=== PATIENT | female | born 1985 | race Two or more races ===

== ENCOUNTER 2016-05-27 21:17 | Emergency (ER) | payer MEDICAID, OTHER ==
[~2016-05-27] VITALS: Ht 152.4 cm; Wt 87.5 kg
[2016-05-27 22:34] LABS: Basophils # (auto) 0.1 uL; Basophils % (auto) 0.5 % (0.0-2.0); DEFINITIVE VIEW TRANSMISSION; Eosinophils # (auto) 0.2 uL; Eosinophils % (auto) 1.3 % (0.0-7.0); Hematocrit 41.6 % (36.0-46.0); Hemoglobin 13.7 g/dL (12.2-16.2); Lymphocytes # (auto) 5.5 uL; Lymphocytes % (auto) 37.3 % (10.0-50.0); Mean Corpuscular Hemoglobin 27.5 pg (28.0-32.0); Mean Corpuscular Volume 83.2 fL (80.0-100.0); Mean Platelet Volume 6.9 fL (7.4-10.4); Monocytes # (auto) 0.8 uL; Monocytes % (auto) 5.1 % (0.0-12.0); Neutrophils # (auto) 8.3 uL; Neutrophils % (auto) 55.8 % (37.0-80.0); Platelet Count (auto) 307 10^3/uL (140-450); Red Cell Distribution Width 12.6 % (11.6-16.0); White Blood Cell 14.9 10^3/uL (4.4-10.8)
[2016-05-27 22:38] LABS: Urine Bilirubin Negative (Negative); Urine Color Colorless (Yellow); Urine Glucose Normal (Normal); Urine Ketone Negative (Negative); Urine Nitrite Negative (Negative); Urine RBC <1 /hpf (0 - 4); Urine Squamous Epithelial Cell FEW /hpf (<5); Urine Urobilinogen Normal (Negative); Urine pH 5.5 (5.0-8.0)
[2016-05-27 22:39] LABS: Urine Blood 2+ /uL (Negative)
[2016-05-27 22:57] LABS: Albumin 3.8 g/dL (3.4-5.0); BUN/Creatinine Ratio 20.8; Calcium 8.7 mg/dL (8.5-10.1); Potassium 3.5 mmol/L (3.5-5.1)
[2016-05-27 23:00] LABS: Bilirubin, Total 0.2 mg/dL (0.2-1.0); Total Protein 7.7 g/dL (6.4-8.2)
[2016-05-28 01:04] VITALS: BP 107/69
[2016-05-28] MEDS ORDERED: SULFAMETHOX W/TRIMETH(800/160MG) DS TAB PO ONE (01:30)
== END 2016-05-28 02:07 | disposition home or self-care (01) ==
LOC: ER 21:28
DX: N39.0 Urinary tract infection, site not specified (principal); K64.9 Unspecified hemorrhoids; K59.00 Constipation, unspecified
CPT/HCPCS: 36415; 74000; 80053; 81001; 81025; 85025; 85049

== ENCOUNTER 2017-09-03 08:12 | Emergency (ER) | payer SELFPAY ==
[~2017-09-03] VITALS: Ht 152.4 cm; Wt 84.4 kg
[2017-09-03 09:06] LABS: Basophils # (auto) 0.1 uL; Basophils % (auto) 0.7 % (0.0-2.0); Eosinophils # (auto) 0.1 uL; Eosinophils % (auto) 1.3 % (0.0-7.0); Hematocrit 43.7 % (36.0-46.0); Hemoglobin 14.6 g/dL (12.2-16.2); Lymphocytes # (auto) 3.1 uL; Lymphocytes % (auto) 33.4 % (10.0-50.0); Mean Corpuscular Hemoglobin 27.9 pg (28.0-32.0); Mean Corpuscular Hgb Conc. 33.5 g/dL (32.0-36.0); Mean Corpuscular Volume 83.5 fL (80.0-100.0); Monocytes # (auto) 0.4 uL; Monocytes % (auto) 4.5 % (0.0-12.0); Neutrophils # (auto) 5.7 uL; Neutrophils % (auto) 60.1 % (37.0-80.0); Platelet Count (auto) 281 10^3/uL (140-450); Red Blood Cells 5.23 10^6/uL (4.0-5.20); Red Cell Distribution Width 13.1 % (11.8-14.3); White Blood Cell 9.4 10^3/uL (4.4-10.8)
[2017-09-03 09:11] LABS: Urine Bacteria NONE SEEN /hpf (None Seen); Urine Blood TRACE /uL (Negative); Urine Mucus FEW (None Seen); Urine Specific Gravity 1.024 (1.001-1.035); Urine WBC 1 /hpf (0 - 5)
[2017-09-03 09:29] LABS: Alanine Aminotransferase 31 U/L (13-56); Albumin 3.8 g/dL (3.4-5.0); Alkaline Phosphatase 100 U/L (45-117); Anion Gap 8 (5-15); Aspartate Aminotransferase 16 U/L (15-37); Bilirubin, Total 0.5 mg/dL (0.2-1.0); Blood Urea Nitrogen 13 mg/dL (7-18); Calcium 8.6 mg/dL (8.5-10.1); Carbon Dioxide 25 mmol/L (21-32); Chloride 107 mmol/L (98-107); GFR African American 105 mL/min; GFR Non-African American 87 mL/min; Glucose 95 mg/dL (74-106); Potassium 3.7 mmol/L (3.5-5.1); Sodium 140 mmol/L (136-145); Total Protein 7.9 g/dL (6.4-8.2)
[2017-09-03 10:47] VITALS: BP 118/74
== END 2017-09-03 13:07 | disposition home or self-care (01) ==
LOC: ER 08:12
DX: H66.92 Otitis media, unspecified, left ear (principal); Z98.51 Tubal ligation status
CPT/HCPCS: 36415; 70450; 80053; 81001; 84484; 84702; 85025

== ENCOUNTER 2018-01-31 09:15 | Emergency (ER) | payer MEDICAID ==
[~2018-01-31] VITALS: Ht 152.4 cm; Wt 87.1 kg
[2018-01-31 09:29] VITALS: BP 129/65
[2018-01-31 10:24] LABS: Basophils # (auto) 0.1 uL; Basophils % (auto) 0.6 % (0.0-2.0); Eosinophils # (auto) 0.1 uL; Eosinophils % (auto) 0.8 % (0.0-7.0); Hematocrit 42.8 % (36.0-46.0); Hemoglobin 14.2 g/dL (12.2-16.2); Lymphocytes # (auto) 3.2 uL; Lymphocytes % (auto) 19.8 % (10.0-50.0); Mean Corpuscular Hemoglobin 27.8 pg (28.0-32.0); Mean Corpuscular Hgb Conc. 33.2 g/dL (32.0-36.0); Mean Corpuscular Volume 83.7 fL (80.0-100.0); Monocytes # (auto) 0.7 uL; Monocytes % (auto) 4.1 % (0.0-12.0); Neutrophils # (auto) 12.2 uL; Neutrophils % (auto) 74.7 % (37.0-80.0); Platelet Count (auto) 283 10^3/uL (140-450); Red Blood Cells 5.12 10^6/uL (4.0-5.20); Red Cell Distribution Width 13.2 % (11.8-14.3); White Blood Cell 16.3 10^3/uL (4.4-10.8)
[2018-01-31 10:45] LABS: Albumin 3.8 g/dL (3.4-5.0); BUN/Creatinine Ratio 15.1; Bilirubin, Total 0.7 mg/dL (0.2-1.0); Calcium 8.9 mg/dL (8.5-10.1); Potassium 4.1 mmol/L (3.5-5.1)
[2018-01-31] MEDS: KETOROLAC TROMETH 60MG/2ML VIAL IM ONE (11:32)
[2018-01-31 13:59] LABS: Urine Bacteria FEW /hpf (None Seen); Urine Blood 3+ /uL (Negative); Urine Specific Gravity 1.007 (1.001-1.035); Urine WBC 53 /hpf (0 - 5)
== END 2018-01-31 12:13 | disposition home or self-care (01) ==
LOC: ER 09:15
DX: N39.0 Urinary tract infection, site not specified (principal); R31.9 Hematuria, unspecified; K76.0 Fatty (change of) liver, not elsewhere classified; J45.909 Unspecified asthma, uncomplicated
CPT/HCPCS: 36415; 74176; 80053; 81001; 81025; 85025; 96372; 99285; J1885

== ENCOUNTER 2023-02-24 10:34 | Emergency (ER) | payer MEDICAID ==
[~2023-02-24] VITALS: Ht 160 cm; Wt 92.7 kg
[2023-02-24 11:41] VITALS: BP 122/66; PULSE 73; RESP 20; TEMP 98; O2SAT 98
[2023-02-24 12:04] LABS: Basophils # (auto) 0.1 10 ^3/uL (0-0.2); Basophils % (auto) 0.5 % (0.0-2.0); Eosinophils # (auto) 0.2 10 ^3/uL (0-0.8); Eosinophils % (auto) 1.8 % (0.0-7.0); Hematocrit 40.9 % (36.0-46.0); Hemoglobin 13.9 g/dL (12.2-16.2); Lymphocytes # (auto) 3.9 10 ^3/uL (0.4-5.4); Lymphocytes % (auto) 36.6 % (10.0-50.0); Mean Corpuscular Hemoglobin 27.9 pg (28.0-32.0); Monocytes # (auto) 0.4 10 ^3/uL (0-1.3); Neutrophils # (auto) 6.1 10 ^3/uL (1.6-8.6); Neutrophils % (auto) 57.1 % (37.0-80.0); Nucleated Red Blood Cells % 0.1 %; Red Blood Cells 4.99 10^6/uL (4.0-5.20); Red Cell Distribution Width 13.6 % (11.8-14.3); White Blood Cell 10.7 10^3/uL (4.4-10.8)
[2023-02-24 12:17] LABS: Urine Bacteria NONE SEEN /hpf (None Seen); Urine Blood 3+ /uL (Negative); Urine Clarity CLOUDY (Clear); Urine Color Red (Yellow); Urine Protein, UAD 2+ (Negative); Urine Urobilinogen Normal (Negative); Urine WBC 573 /hpf (0 - 5); Urine WBC Clumps PRESENT /hpf (None Seen); Urine pH 5.5 (5.0-8.0)
[2023-02-24 12:39] LABS: Chloride 106 mmol/L (98-107); Potassium 3.9 mmol/L (3.5-5.1); Sodium 137 mmol/L (136-145)
[2023-02-24 12:40] LABS: Anion Gap 6 (5-15); Carbon Dioxide 25 mmol/L (20-30)
[2023-02-24 12:41] LABS: Calcium 9.1 mg/dL (8.5-10.1)
[2023-02-24 12:45] LABS: BUN/Creatinine Ratio 11.4 (10.0-20.0); Blood Urea Nitrogen 9 mg/dL (9-23); Glucose 96 mg/dL (74-106)
[2023-02-24] MEDS ORDERED: BACDST PO (12:57)
[2023-02-24] MEDS ORDERED: NAPR-746 PO (12:57)
[2023-02-24 14:14] LABS: Urine Specific Gravity 1.028 (1.001-1.035)
== END 2023-02-24 13:07 | disposition home or self-care (01) ==
LOC: ER 10:34
DX: N92.1 Excessive and frequent menstruation with irregular cycle (principal); R10.2 Pelvic and perineal pain; N39.0 Urinary tract infection, site not specified; J45.909 Unspecified asthma, uncomplicated; Z98.51 Tubal ligation status; Z32.02 Encounter for pregnancy test, result negative
CPT/HCPCS: 36415; 80048; 81001; 81025; 84702; 85025; 86850; 86900; 86901

== ENCOUNTER 2025-02-17 18:08 | Emergency (ER) | payer MEDICAID ==
[~2025-02-17] VITALS: Ht 152.4 cm; Wt 104.5 kg
[~2025-02-17 18:08] MED LIST: BACDST PO; NAPR-746 PO
[2025-02-17 18:09] VITALS: BP 138/48; PULSE 82; RESP 16; TEMP 98.1; O2SAT 97
== END 2025-02-17 20:06 | disposition left against medical advice (07) ==
LOC: ER 18:08
DX: R68.89 Other general symptoms and signs (principal); Z79.899 Other long term (current) drug therapy